=== PATIENT | male | born 2005 | race Caucasian/White ===

== ENCOUNTER 2023-11-09 08:26 | Emergency (ER) | payer OTHER, SELFPAY ==
[2023-11-09] VITALS (30 sets, daily range): BP systolic 118–181; BP diastolic 44–96; PULSE 53–95; RESP 8–23; TEMP 36.4; O2SAT 93; BMI 24.2
--- NOTE | 2023-11-09 08:30 | DI.CT_ITS ---
Exam(s) CT HEAD CERVICAL SPINE WO EXAM: CT HEAD CERVICAL SPINE WO CLINICAL HISTORY: Trauma. TECHNIQUE: Imaging Protocol: Axial computed tomography images with coronal and sagittal reformatted images were created and reviewed COMPARISON: No exams were available for comparison FINDINGS: CT Head: Ventricles and Extra axial spaces: Normal in size and morphology for the patient's age. Hemorrhage: None. Cerebral parenchyma: Normal. Midline shift: None. Brainstem/Cerebellum: Normal. Calvarium: Normal. Visualized Paranasal sinuses/Mastoids: There is a fluid level seen in the right maxillary sinus. The re is mucosal thickening in the right sphenoid sinus. The remaining visualized paranasal sinuses and mastoid air cells are clear. Soft Tissues: Unremarkable. CT Cervical Spine: Bones: No acute fracture or subluxation. Please refer to the CT scan of the chest, abdomen and pelvis 4 characterization of the rib fractures and right scapular fracture. Soft Tissues: Unremarkable. Lung Apices: The tip of a right chest tube is seen in the right lung apex. There is a tiny right api wagner pneumothorax present. IMPRESSION: 1. No acute intracranial process. 2. No acute fracture or subluxation in the cervical spine. 3. Right rib fractures and right scapular fracture. Right chest tube in tiny right apical pneumothor ax. These are further characterized on the patient's CT scan of the chest, abdomen and pelvis. RADIATION DOSE DELIVERED: 1,538.73mGy.cm Total DLP DATA REPOSITORY: All CT scans at this facility are submitted to the National Radiology Data Registry (NRDR) Dose Index Registry (DIR) with the [employer] (ACR). RADIATION OPTIMIZATION: All CT scans at this facility use at least one of these dose optimization te chniques: automated exposure control; mA and/or kV adjustment per patient size (includes targeted exa ms where dose is matched to clinical indication); or iterative reconstruction.
--- NOTE | 2023-11-09 08:30 | DI.CT_ITS ---
Exam(s) CT CHEST/ABD/PEL W CT THORACIC LUMBAR SPINE REC EXAM: CT CHEST/ABD/PEL W and CT thoracic and lumbar spine recons CLINICAL HISTORY: Trauma TECHNIQUE: Imaging Protocol: Axial computed tomography images with coronal and sagittal reformatted images were created and reviewed CONTRAST MATERIAL: Intravenous: Omnipaque 350 contrast volume:100 mL Oral: No COMPARISON: CT CT THORACIC LUMBAR SPINE REC from 11/09/2023 FINDINGS: CHEST: Tracheobronchial tree: Patent where visualized. Pulmonary parenchyma: There is a right chest tube with its tip in the lung apex. There is a tiny rig ht apical pneumothorax present. Pulmonary opacities are seen in the right lower lobe with air cysts present likely reflecting pneumatoceles. Atelectatic changes are also seen in the posterior aspect o f the right upper lobe and the dependent portion of the left lower lobe. There is a small amount of fluid seen in the right major fissure. There is subcutaneous air seen along the right chest wall. Visualized thyroid gland: Unremarkable. Mediastinum and Luma: No dominant adenopathy or fluid collection. The esophagus is unremarkable. The re is a small amount of soft tissue in the anterior mediastinum most consistent with residual thymic tissue. Pleura: There is no evidence of a left pleural effusion or pneumothorax. Heart: The heart is not dilated. No coronary artery calcifications are seen. No pericardial effusion. Pulmonary arteries: Due to the timing of the bolus, the pulmonary arteries are not adequately opacifi ed for evaluation of pulmonary embolism. No large central pulmonary embolus is seen. Aorta: Thoracic aorta non-dilated. No evidence of dissection. Lymph nodes: Within normal limits. Soft tissues: Please see under the section pulmonary parenchyma. Bones:There are displaced comminuted fractures involving the posterior lateral aspects of the right 2 nd, 3rd and 4th ribs. There are displaced fractures of the posterior aspects of the right 5th, 6th a nd 7th ribs. Nondisplaced fractures are seen at the posterior aspects of the right 8th, 9th and 10th ribs. There is a nondisplaced oblique fracture through the superior medial aspect of the right scap donna. Thoracic spine recons: No acute fractures or subluxations are seen in the thoracic spine. ABDOMEN: Liver: Normal density. No measurable mass. Portal, Superior Mesenteric, and Splenic Veins: Unremarkable. Gallbladder and Biliary Tract: No radiodense calculus or dilation. Pancreas: Normal density, no abnormal calcifications or inflammatory process. Spleen: Normal. Adrenals: No masses seen. Kidneys: Normal size, contour and axis. No radiodense stones or obstructive uropathy. No masses seen. Abdominal Aorta: Abdominal portion non-dilated. Bowel: No obstruction or bowel wall thickening. Appendix is unremarkable. Peritoneal Cavity: No ascites, collection or mesenteric inflammatory response. No free air. Lymph Nodes: Within normal limits. Bones: Within normal limits for the patient's age. Soft Tissues: Unremarkable. Lumbar spine recons: No acute fracture or subluxation is identified. There is a well corticated osse ous fragment at the inferior facet of L4. This appears chronic. PELVIS: Bladder: Symmetric distention, no gross wall thickening. Reproductive Organs: Unremarkable as visualized. Lymph Nodes: Within normal limits. Bones: Within normal limits. IMPRESSION: 1. Unremarkable CT scan of the abdomen and pelvis. 2. Fractures involving the right 2nd through 10th ribs as described. 3. Tiny right apical pneumothorax. The tip of the right chest tube is in the apex of the right hemit horax. 4. Contusions and pneumatoceles involving the right lower lobe. Atelectasis in the right upper lobe and left lower lobe. 5. Nondisplaced right scapular fracture. 6. No acute fractures or subluxations in the thoracic or lumbar spine. 7. Please see the above discussion for complete details. RADIATION DOSE DELIVERED: 1,480.21mGy.cm Total DLP DATA REPOSITORY: All CT scans at this facility are submitted to the National Radiology Data Registry (NRDR) Dose Index Registry (DIR) with the [employer] (ACR). RADIATION OPTIMIZATION: All CT scans at this facility use at least one of these dose optimization te chniques: automated exposure control; mA and/or kV adjustment per patient size (includes targeted exa ms where dose is matched to clinical indication); or iterative reconstruction.
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
[2023-11-09 08:47] LABS: BE (Venous) 1 mmol/L (-2-3); HCO3 (Venous) 27 mmol/L (23-28); O2 Sat (Venous) 67 %; TCO2 (Venous) 25 mmol/L (24-29); pCO2 (Venous) 53 mmHg (41-51); pH (Venous) 7.32 (7.31-7.41); pO2 (Venous) 38 mmHg
[2023-11-09 08:49] LABS: Abs Immature Grans 0.08 10^3/uL (0.0-0.06); Absolute Basophil Count 0.09 10^3/uL (0.0-0.2); Absolute Eosinophil Count 1.07 10^3/uL (0.0-0.7); Absolute Lymphocyte Count 3.39 10^3/uL (1.2-3.4); Absolute Neutrophil Count 6.95 10^3/uL (1.2-6.7); Basophils % 0.7; Eosinophils % 8.7; HCT 42.2 % (40.0-50.0); HGB 14.5 g/dL (13.5-17.5); Immature Grans % 0.7; Lymphocytes % 27.6; MCHC 34.4 % (32.0-36.0); MCV 87 fL (80-95); MPV 10.4 fL (8.0-11.0); Monocytes % 5.7; Neutrophils % 56.6; Platelet Count 329 10^3/uL (130-400); RBC 4.83 10^6/uL (4.36-5.78); RDW 12.6 % (11.8-14.1); RDW-SD 40.4 fL; WBC 12.28 10^3/uL (4.4-10.8)
[2023-11-09] MEDS: Ondansetron 4 MG/2 ML VIAL IVP (08:52)
[2023-11-09] MEDS: fentaNYL 100 MCG/2 ML VIAL 75 MCG IVP (08:53)
--- NOTE | 2023-11-09 08:55 | DI.RAD_ITS ---
Exam(s) XR PORTABLE CHEST AP EXAM: XR PORTABLE CHEST AP CLINICAL HISTORY: Shortness of breath TECHNIQUE: 2D digital imaging was performed of the chest. Two images were obtained. AP views were obtained. COMPARISON: No exams were available for comparison FINDINGS: MEDIASTINUM: Normal. HEART: Normal. PULMONARY VASCULATURE: Normal. LUNGS: Clear. PLEURAL SPACE: No pleural effusion or pneumothorax. BONE:Within normal limits for the patient's age. There are displaced fractures involving the postero lateral aspects of the right 2nd, 3rd and 4th ribs. There are mildly displaced fractures involving t he posterior aspects of the right 5th and 6th ribs. OTHER FINDINGS:Normal. IMPRESSION: 1. Fractures involving the right 2nd through 6th ribs. 2. No pneumothorax is identified. 3. The lungs are clear. DATA REPOSITORY: RADIATION DOSE DELIVERED:
[2023-11-09 09:01] LABS: INR 1.4 (0.9-1.1); Prothrombin Time 13.3 sec (9.1-11.1)
[2023-11-09] MEDS: ceFAZolin 2 GM/50 ML BAG IVPB (09:02)
[2023-11-09] MEDS: Ketamine 500 MG/10 ML VIAL 25 MG IVP ×3 (09:03→10:36)
[2023-11-09 09:13] LABS: ALT 94 U/L (16-63); AST 144 U/L (15-37); Albumin 3.8 g/dL (3.4-5.0); Alkaline Phosphatase 106 U/L (46-116); Anion Gap 10.5 mmol/L (3-11); BUN 16 mg/dL (7-18); Bilirubin, Total 0.8 mg/dL (0.2-1.0); CO2 27.5 mmol/L (21.0-32.0); CREATININE 1.2 mg/dL (0.70-1.30); Calcium 8.5 mg/dL (8.5-10.1); Chloride 105 mmol/L (98-107); ETHANOL BLOOD < 3.0 mg/dL (<10); Estimated GFR 88.79 (mL/min/1.73m2); Glucose 168 mg/dL (74-106); Lipase 131 U/L (16-77); Potassium 3.7 mmol/L (3.5-5.1); Sodium 143 mmol/L (136-145); Total Protein 6.8 g/dL (6.4-8.2); Troponin I < 50 ng/L (< or =60)
[2023-11-09] MEDS: fentaNYL 100 MCG/2 ML VIAL (09:20)
[2023-11-09] MEDS: HYDROmorphone 2 MG/ML SYR ×2 (09:42→09:57)
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
[2023-11-09] MEDS: Omnipaque 350 MG/ML 500 ML BTL-Imaging package 100 ML IJ (10:31)
[2023-11-09] MEDS: fentaNYL 100 MCG/2 ML VIAL IVP ×2 (10:35→12:57)
[2023-11-09] MEDS: Normal Saline 500 ML IV (10:42)
--- NOTE | 2023-11-09 11:05 | NUR.NOTE ---
Nursing Note: 09 chest tube insertion procedure began with 2 RNs and MD Vega present. Patient on tele, Capnography and 15l NRB. Meds given per emergency verbal orders, verified by 2 nurses. procedure ended 944 Patient tolerated procedure well see chart for VS
--- NOTE | 2023-11-09 11:32 | W.ANESPRE ---
General Info Date of Service Date Performed: 11/09/23 Height: 5 ft 10 in Weight: 76.657 kg Body Mass Index (BMI): 24.2 Meds Allergies and Home Medications Current Visit Medications: Current Medications Generic Name Dose Route Start Last Admin Trade Name Anthony PRN Reason Stop Dose Admin Iohexol 100 ml 11/09/23 10:45 11/09/23 10:31 Omnipaque 350 Mg/Ml 500 Ml Btl-Imaging Package IJ 12/09/23 23:59 100 ml DIRECTED JUAN J Administration Lidocaine/Epinephrine 20 ml 11/09/23 08:45 Lidocaine 2% Multi-Dose W/Epi 1/100,000 20ml Vial IJ DIRECTED JUAN J Sodium Chloride 50 ml 11/09/23 10:00 Normal Saline - Diluent 50 Ml Vial IV .FOR DI USE [facility] Vital Signs and Lab Results Vital Signs Most Recent Vital Signs in EMR: Most Recent Vital Signs Temp Pulse Resp BP Pulse Ox 36.4 C L 86 16 138/63 93 11/09/23 08:32 11/09/23 11:06 11/09/23 11:06 11/09/23 11:06 11/09/23 08:32 Lab Results 11/09/23 08:35 11/09/23 08:35 Blood Type / Crossmatch: Patient ABO/Rh A Positive 11/09/23 Antibody Screen NEGATIVE 11/09/23 Complete Blood Count: White Blood Count 12.28 10^3/uL (4.4-10.8) H 11/09/23 08:35 Red Blood Count 4.83 10^6/uL (4.36-5.78) 11/09/23 08:35 Hemoglobin 14.5 g/dL (13.5-17.5) 11/09/23 08:35 Hematocrit 42.2 % (40.0-50.0) 11/09/23 08:35 Platelet Count 329 10^3/uL (130-400) 11/09/23 08:35 Complete Metabolic Panel: Sodium 143 mmol/L (136-145) 11/09/23 08:35 Potassium 3.7 mmol/L (3.5-5.1) 11/09/23 08:35 Chloride 105 mmol/L (98-107) 11/09/23 08:35 Carbon Dioxide 27.5 mmol/L (21.0-32.0) 11/09/23 08:35 BUN 16 mg/dL (7-18) 11/09/23 08:35 Creatinine 1.2 mg/dL (0.70-1.30) 11/09/23 08:35 Est GFR (CKD-EPI 2020) 88.79 (mL/min/1.73m2) 11/09/23 08:35 Calcium 8.5 mg/dL (8.5-10.1) 11/09/23 08:35 Albumin 3.8 g/dL (3.4-5.0) 11/09/23 08:35 Glucose 168 mg/dL (74-106) H 11/09/23 08:35 Liver Function Panel: Alanine Aminotransferase (ALT/SGPT) 94 U/L (16-63) H 11/09/23 08:35 Aspartate Amino Transf (AST/SGOT) 144 U/L (15-37) H 11/09/23 08:35 Coagulation Panel: INR International Normalized Ratio 1.4 (0.9-1.1) H 11/09/23 08:35 Prothrombin Time 13.3 sec (9.1-11.1) H 11/09/23 08:35 Cardiac Panel: Troponin I < 50 ng/L (< or =60) 11/09/23 Arterial Blood Gas: No Data to Display Venous Blood Gas: Venous Blood pH 7.32 (7.31-7.41) 11/09/23 08:35 Venous Blood Partial Pressure O2 38 mmHg 11/09/23 08:35 Venous Blood Partial Pressure CO2 53 mmHg (41-51) H 11/09/23 08:35 Venous Blood Oxygen Saturation 67 % 11/09/23 08:35 Venous Blood HCO3 27 mmol/L (23-28) 11/09/23 08:35 Venous Blood Base Excess 1 mmol/L (-2-3) 11/09/23 08:35 Venous Blood Total Carbon Dioxide 25 mmol/L (24-29) 11/09/23 08:35 Pancreas Panel: Lipase 131 U/L (16-77) H 11/09/23 08:35 Thyroid Panel: No Data to Display Infectious Disease: No Data to Display Blood Cultures: No Data to Display Toxicology Panel: Ethyl Alcohol Level < 3.0 mg/dL (<10) 11/09/23 08:35 Anesthesia Assessment and Plan Anesthesia History Personal History: No History of Anesthesia Complications Family History: No Family History of Anesthesia Complications Exercise Tolerance Exercise Tolerance: Metabolic Equivalents>4 Pertinent Negatives Pertinent Negatives: No Symptoms of GERD Cardiac & Pulmonary Exam Cardiac Exam: Normal S1/S2 Heart Sounds Pulmonary Exam: Clear Bilateral Breath Sounds Implantable Cardiac Device Does patient have a Pacemaker or an ICD?: No Airway Exam Known Difficult Airway: No Mallampati Class: 2 Mouth Opening: Normal (> 3cm) Thyromental Distance: Greater than 3 cm Neck Range of Motion: Full ROM Neck Circumference: Normal Teeth Condition: Normal Dentition ASA Classification ASA Score: ASA 2 Emergency Case?: No NPO Status NPO Status: NPO Clears >2 hours, Solids >8 hours Anesthesia Plan Resuscitation Status: Full Code Anesthesia Technique: Primary Nerve Block Airway Planned: Natural Airway Pain Management: Surgeon and patient request nerve block Monitors Used: Standard Monitors
[2023-11-09] MEDS: Ketamine 500 MG/10 ML VIAL 35 MG IVP (11:51)
[2023-11-09] MEDS: Bupivacaine LIPOSOME/PF 133 MG/10 ML VIAL IJ (12:08)
[2023-11-09] MEDS: Bupivacaine 0.5% Pres-Free 30 ML VIAL (12:08)
--- NOTE | 2023-11-09 12:33 | W.ANESNERVE ---
Nerve Block Single Injection Procedure Date and Time Date Performed: 11/09/23 Procedure Start: 11:50 Location Where Procedure Performed Procedure Location: Emergency Department Reason Performed: Acute Pain Management Pain Diagnosis: Rib Pain (Multiple rib Fx) Requesting Provider: Andres Mullen Timeout Performed Timeout Performed: Yes Monitoring Used ECG, Blood Pressure, SpO2 and See EMR for corresponding vital signs Sterility Sterility: Hand Hygiene, Surgical Cap, Surgical Mask, Sterile Gloves, Eye Protection and Chlorhexidine Sedation Given During Procedure Sedation Given (Indicate Dose Given): No Sedation given Patient Mental Status Patient Mental Status: Sedate with meaningful communication (Rx given by ED staff) Nerve Block 1st Nerve Block: Laterality: Right Block Type: Erector Spinae (Upper) Ultrasound Image Saved?: Yes Needle / Catheter Used: 100mm SonoPlex II Local Anesthetic Bolus (Indicate Dose Given): Lidocaine used for local infiltration of skin, Injected in 3-5ml increments after negative blood aspiration, Bupivacaine 0.5% Dose:: 0.5%/10cc (50mg) and Exparel Dose:: 1.33% / 10cc (133mg) Additives (Indicate Dose Given): None Ultrasound: Sterile probe cover and gel used Nerve Stimulator: Not Used Paresthesia: None Procedure Tolerated: No Complications and Patient tolerated well Procedure Outcome: Successful Performed By: Apolinar Zapien
== END 2023-11-09 13:06 ==
PROVIDERS: Emergency Provider Emergency Medicine
DX: S22.41XA Multiple fractures of ribs, right side, initial encounter for closed fracture (principal); J93.83 Other pneumothorax; S42.101A Fracture of unspecified part of scapula, right shoulder, initial encounter for closed fracture; V86.02XA Driver of snowmobile injured in traffic accident, initial encounter
CPT/HCPCS: 32551; 74177; 76604; 76705; 76857; 80053; 82805; 83690; 86850; 86900; 86901; 96361; 96365; 96375; 96376; 99285; 70450; 71045; 71260; 72125; 80320; 84484; 85025; 85610; C9290; J0665; J0690; J1170; J2405; J3010